=== PATIENT | female | born 1990 | race African-American/Black ===

== ENCOUNTER 2018-02-13 16:57 | Emergency (ER) | payer OTHER ==
[~2018-02-13] VITALS: Ht 170.2 cm; Wt 117.9 kg
[~2018-02-13 16:57] MED LIST: BENZ100C PO; PRED50TA PO; VENTOLIN HFA18 GM INH
[2018-02-13] MEDS ORDERED: IPRATRPIUM/ALBUTEROL 0.5/2.5MG 3 ML NEBU. NEB ONE (17:30)
[2018-02-13] MEDS ORDERED: ALBUTEROL SULFATE 2.5 MG/3 ML NEBU. ONE (17:32)
[2018-02-13] MEDS ORDERED: ALBUTEROL SULFATE 2.5 MG/3 ML NEBU. NEB ONE (17:45)
[2018-02-13] MEDS ORDERED: DEXAMETHASONE SOD PHOS 20 MG/5 ML VIAL. PO ONE (17:45)
[2018-02-13 18:32] VITALS: BP 175/84
[2018-02-13] MEDS ORDERED: PROAIR HFA8.5 GM INH (18:59)
[2018-02-13] MEDS ORDERED: PRED50TA PO (18:59)
--- NOTE | 2018-02-13 19:00 | PHYS DOC ---
Past Medical History Past Medical History: Asthma Additional Past Medical Histor: severe seasonal allergies Past Surgical History: No Surgical History Alcohol Use: Occasionally Drug Use: None Adult General Chief Complaint Chief Complaint: ASTHMA HPI HPI Patient is a 27 year old [f__sex] who presents with [] Review of Systems Review of Systems Constitutional: Denies fever or chills [] Eyes: Denies change in visual acuity, redness, or eye pain [] HENT: Denies nasal congestion or sore throat [] Respiratory: Denies cough or shortness of breath [] Cardiovascular: No additional information not addressed in HPI [] GI: Denies abdominal pain, nausea, vomiting, bloody stools or diarrhea [] : Denies dysuria or hematuria [] Musculoskeletal: Denies back pain or joint pain [] Integument: Denies rash or skin lesions [] Neurologic: Denies headache, focal weakness or sensory changes [] Endocrine: Denies polyuria or polydipsia [] All other systems were reviewed and found to be within normal limits, except as documented in this note. Current Medications Current Medications Current Medications Medications (Trade) Dose Ordered Sig/Damien Start Time Stop Time Status Last Admin Dose Admin Albuterol Sulfate (Ventolin Neb Soln) 2.5 mg 1X ONCE 02/13/18 17:45 02/13/18 17:46 DC 02/13/18 17:35 2.5 MG Albuterol/ Ipratropium (Duoneb) 3 ml 1X ONCE 02/13/18 17:30 02/13/18 17:31 DC 02/13/18 17:24 3 ML Dexamethasone Sodium Phosphate (Decadron) 10 mg 1X ONCE 02/13/18 17:45 02/13/18 17:46 DC 02/13/18 17:53 10 MG Allergies Allergies Allergies Coded Allergies Type Severity Reaction Last Updated Verified No Known Drug Allergies 12/09/15 No Physical Exam Physical Exam Constitutional: Well developed, well nourished, no acute distress, non-toxic appearance. [] HENT: Normocephalic, atraumatic, bilateral external ears normal, oropharynx moist, no oral exudates, nose normal. [] Eyes: PERRLA, EOMI, conjunctiva normal, no discharge. [] Neck: Normal range of motion, no tenderness, supple, no stridor. [] Cardiovascular:Heart rate regular rhythm, no murmur [] Lungs & Thorax: Bilateral breath sounds clear to auscultation [] Abdomen: Bowel sounds normal, soft, no tenderness, no masses, no pulsatile masses. [] Skin: Warm, dry, no erythema, no rash. [] Back: No tenderness, no CVA tenderness. [] Extremities: No tenderness, no cyanosis, no clubbing, ROM intact, no edema. [] Neurologic: Alert and oriented X 3, normal motor function, normal sensory function, no focal deficits noted. [] Psychologic: Affect normal, judgement normal, mood normal. [] Current Patient Data Vital Signs Vital Signs Date Time Temp Pulse Resp B/P (MAP) Pulse Ox O2 Delivery O2 Flow Rate FiO2 02/13/18 18:32 109 20 175/84 (114) 100 Room Air 02/13/18 17:05 98.4 98.4 EKG EKG [] Radiology/Procedures Radiology/Procedures [] Course & Med Decision Making Course & Med Decision Making Pertinent Labs and Imaging studies reviewed. (See chart for details) [] Dragon Disclaimer Dragon Disclaimer This electronic medical record was generated, in whole or in part, using a voice recognition dictation system. Departure Departure Impression: Primary Impression: Asthma Disposition: HOME, SELF-CARE Condition: IMPROVED Referrals: NO PCP (PCP) Patient Instructions: Asthma, Adult, [id number] Additional Instructions: Fill prescription(s) and use as directed. Increase clear fluids. Avoid triggers such as smoke, fragrance, dust, and pollen. May take OTC cough suppressants as needed. Follow-up with your primary care doctor next week. REturn to the ER if your symptoms worsen. Scripts Prednisone (PREDNISONE) 50 Mg Tablet 1 TAB PO DAILY for 5 Days, #5 TAB 0 Refills Prov: GLORIA COLORADO APRN 02/13/18 Albuterol Sulfate (PROAIR HFA INHALER) 8.5 Gm Hfa.aer.ad 1-2 PUFF INH PRN Q6HRS PRN for SHORTNESS OF BREATH, #1 INHALER 1 Refill Prov: GLORIA COLORADO APRN 02/13/18 Problem Qualifiers Primary Impression: Asthma Asthma severity: mild Asthma persistence: intermittent Asthma complication type: with acute exacerbation Qualified Codes: J45.21 - Mild intermittent asthma with (acute) exacerbation GLORIA COLORADO APRN Feb 13, 2018 18:59
== END 2018-02-13 19:04 | disposition home or self-care (01) ==
LOC: ER 16:57
DX: J45.21 Mild intermittent asthma with (acute) exacerbation (principal); Z91.09 Other allergy status, other than to drugs and biological substances
CPT/HCPCS: 94640; 99284; J1100; J7613; J7620

== ENCOUNTER 2018-03-22 21:38 | Emergency (ER) | payer OTHER ==
[~2018-03-22] VITALS: Ht 170.2 cm; Wt 117.9 kg
[~2018-03-22 21:38] MED LIST changes: +PROAIR HFA8.5 GM INH
--- NOTE | 2018-03-22 21:55 | PHYS DOC ---
Past Medical History Past Medical History: Asthma Additional Past Medical Histor: severe seasonal allergies Past Surgical History: No Surgical History Alcohol Use: Occasionally Drug Use: None Adult General Chief Complaint Chief Complaint: ASTHMA HPI HPI Patient is a 27 year old female with history of asthma who presents today complaining of shortness of breath and wheezing that began a couple weeks ago and got worse after she ran out of her inhaler weeks ago. Patient denies any fever. Review of Systems Review of Systems Constitutional: Denies fever or chills [] Eyes: Denies change in visual acuity, redness, or eye pain [] HENT: Denies nasal congestion or sore throat [] Respiratory: Reports cough and shortness of breath, wheezing. Cardiovascular: No additional information not addressed in HPI [] GI: Denies abdominal pain, nausea, vomiting, bloody stools or diarrhea [] : Denies dysuria or hematuria [] Musculoskeletal: Denies back pain or joint pain [] Integument: Denies rash or skin lesions [] Neurologic: Denies headache, focal weakness or sensory changes [] Endocrine: Denies polyuria or polydipsia [] All other systems were reviewed and found to be within normal limits, except as documented in this note. Current Medications Current Medications Current Medications Medications (Trade) Dose Ordered Sig/Damien Start Time Stop Time Status Last Admin Dose Admin Albuterol/ Ipratropium (Duoneb) 3 ml 1X ONCE 03/22/18 22:15 03/22/18 22:16 DC 03/22/18 22:00 3 ML Prednisone (Prednisone) 60 mg 1X ONCE 03/22/18 22:15 03/22/18 22:16 DC 03/22/18 22:31 60 MG Allergies Allergies Allergies Coded Allergies Type Severity Reaction Last Updated Verified No Known Drug Allergies 12/09/15 No Physical Exam Physical Exam Constitutional: Well developed, well nourished, no acute distress, non-toxic appearance. [] HENT: Normocephalic, atraumatic, bilateral external ears normal, oropharynx moist, no oral exudates, nose normal. [] Eyes: PERRLA, EOMI, conjunctiva normal, no discharge. [] Neck: Normal range of motion, no tenderness, supple, no stridor. [] Cardiovascular:Heart rate regular rhythm, no murmur [] Lungs & Thorax: Scattered wheezing throughout the lung bases. Abdomen: Bowel sounds normal, soft, no tenderness, no masses, no pulsatile masses. [] Skin: Warm, dry, no erythema, no rash. [] Back: No tenderness, no CVA tenderness. [] Extremities: No tenderness, no cyanosis, no clubbing, ROM intact, no edema. [] Neurologic: Alert and oriented X 3, normal motor function, normal sensory function, no focal deficits noted. [] Psychologic: Affect normal, judgement normal, mood normal. [] Current Patient Data Vital Signs Vital Signs Date Time Temp Pulse Resp B/P (MAP) Pulse Ox O2 Delivery O2 Flow Rate FiO2 03/22/18 22:31 100 20 161/88 (112) 98 Room Air 03/22/18 21:58 98.1 98.1 EKG EKG [] Radiology/Procedures Radiology/Procedures [] Course & Med Decision Making Course & Med Decision Making Pertinent Labs and Imaging studies reviewed. (See chart for details) This is a 27-year-old female patient with history of asthma presenting today with wheezing and shortness of breath. Symptoms have been going on for weeks. Patient ran out of inhaler weeks ago. Patient was given a DuoNeb treatment and started on prednisone in the ED. Lungs have cleared up, O2 sats have remained above 99% on room air. Patient states the breathing is back to baseline. Patient was discharged with albuterol inhaler and prednisone for 4 more days. Recommended she follows up with her PCP in the course of this week or next week. Provided return precautions and discharged in stable condition. Dragon Disclaimer Dragon Disclaimer This electronic medical record was generated, in whole or in part, using a voice recognition dictation system. Departure Departure Impression: Primary Impression: Asthma exacerbation Disposition: 01 HOME, SELF-CARE Condition: STABLE Referrals: NO PCP (PCP) Follow-up in one week Patient Instructions: Asthma, Adult Additional Instructions: You were evaluated in the emergency room for asthma exacerbation. Ensure you are using your breathing treatments as ordered. Take the prescribed prednisone until completed. Scripts Prednisone (PREDNISONE) 50 Mg Tablet 1 TAB PO DAILY, #4 TAB Prov: SAUMYA CANALES APRN 03/22/18 Albuterol Sulfate (VENTOLIN HFA INHALER) 18 Gm Hfa.aer.ad 2 PUFF INH Q4HRS for FOR ASTHMA, #1 INHALER 1 Refill Prov: SAUMYA CANALES APRN 03/22/18 Problem Qualifiers Primary Impression: Asthma exacerbation Asthma severity: mild Asthma persistence: intermittent Qualified Codes: J45.21 - Mild intermittent asthma with (acute) exacerbation SAUMYA CANALES ARTIST REPRESENTATIVE Mar 22, 2018 21:55
[2018-03-22] MEDS ORDERED: predniSONE 20 MG TABLET PO ONE (22:15)
[2018-03-22] MEDS ORDERED: IPRATRPIUM/ALBUTEROL 0.5/2.5MG 3 ML NEBU. NEB ONE (22:15)
[2018-03-22 22:31] VITALS: BP 161/88
[2018-03-22] MEDS ORDERED: VENTOLIN HFA18 GM INH (22:37)
[2018-03-22] MEDS ORDERED: PRED50TA PO (22:37)
== END 2018-03-22 22:46 | disposition home or self-care (01) ==
LOC: ER 21:38
DX: J45.901 Unspecified asthma with (acute) exacerbation (principal)
CPT/HCPCS: 94640; 99283; J7512; J7620